=== PATIENT | female | born 1955 | race Caucasian/White ===

== ENCOUNTER 2017-10-18 10:47 | Outpatient (CLI) | payer OTHER ==
--- NOTE | 2017-10-18 14:31 | MRI ---
MRI LUMBAR SPINE WITHOUT CONTRAST: Date: 10/18/17 HISTORY: Low back pain. M51.16. COMPARISON: MRI dated 11/13/16. FINDINGS: The aortic contour is normal. No aneurysmal dilatation. Visualized portions of both kidneys are unremarkable. No retroperitoneal adenopathy. No significant paraspinal musculature or atrophy. The marrow signal in the lumbar spine is normal. The conus medullaris terminates at superior end plate of L1. Levels are as follows: T12-L1: Normal. L1-2: Normal. L2-3: Moderate facet arthrosis. No significant spinal canal narrowing. There is moderate right-sided neural foraminal narrowing due to hypertrophic facet changes. L3-4: There is low grade degenerative disc space height loss with circumferential disc bulge. There is some moderate to severe right and moderate left-sided facet arthropathy. A combination of hypertrophic fa cet changes and low grade circumferential disc bulge causes moderate bilateral neural foraminal narro wing. L4-5: Moderate facet arthrosis. Moderate ligamentum flavum hypertrophy. Low grade circumferential disc bulg e. There is moderate left and right-sided neural foraminal narrowing. L5-S1: There is revisualization of the annular fissure L5-S1 extending to left subarticular zone abutting th e traversing left S1 nerve root. There is also moderate facet arthrosis bilaterally narrowing the nick ateral neural foramina, moderately. IMPRESSION: 1. Similar appearance of the annular fissure at L5-S1 with abutment of the traversing left S1 nerve root. 2. Extensive facet arthropathy throughout the lumbar spine, progressed from prior examination, with low grade circumferential disc bulges. POS: [facility]
== END 2017-10-18 10:48 | disposition home or self-care (01) ==
LOC: SCSMRI 10:47
PROVIDERS: ATTEND Nurse Practitioner Family
DX: M54.16 Radiculopathy, lumbar region (principal); M54.5 Low back pain; M46.96 Unspecified inflammatory spondylopathy, lumbar region
CPT/HCPCS: 72148

== ENCOUNTER 2018-06-08 15:16 | Outpatient (CLI) | payer BC ==
--- NOTE | 2018-06-08 17:19 | RAD ---
3 VIEW LUMBAR SPINE: Date: 06/08/18 INDICATION: Low back pain with pain radiating down left hip. FINDINGS: There is mild multilevel disc degenerative and mild to moderate multilevel facet osteoarthritic quintero e. There is very slight retrolisthesis of L3 on L4 that is accentuated with extension and slightly re duced flexion. No additional abnormal listhesis is present. Vertebral body heights are preserved. IMPRESSION: Mild to moderate spondylosis of the lumbar spine with mild retrolisthesis of L3 on L4 accentuated wit h extension and slightly reduced with flexion. POS: [facility]
== END 2018-06-08 15:17 | disposition home or self-care (01) ==
LOC: SCSRAD 15:16
PROVIDERS: ATTEND Neurological Surgery
DX: M47.26 Other spondylosis with radiculopathy, lumbar region (principal); M43.16 Spondylolisthesis, lumbar region
CPT/HCPCS: 72100

== ENCOUNTER 2018-07-28 10:38 | Outpatient (CLI) | payer BC | END 2018-07-28 10:39 | disposition home or self-care (01) | LOC: BICMAMMO 10:38 | PROVIDERS: ATTEND Obstetrics & Gynecology | DX: Z12.31 Encounter for screening mammogram for malignant neoplasm of breast (principal); Z80.3 Family history of malignant neoplasm of breast | CPT/HCPCS: 77063; 77067 ==

== ENCOUNTER 2019-07-12 09:49 | Outpatient (CLI) | payer BC ==
--- NOTE | 2019-07-12 11:22 | CT ---
EXAM: CT ABDOMEN AND PELVIS HISTORY: Abdominal pain COMPARISON: None. Procedure: Multiple contiguous axial images were obtained and a CT of the abdomen and pelvis with IV contrast. C oronal reformats were performed. FINDINGS: Lower Chest: Patchy groundglass opacities in the visualized lung parenchyma. Correlate for atypical i nfection or infiltrate. Vessels: Normal caliber aorta. No periaortic fat stranding. Calcified plaque in the proximal abdomina l aorta, just before the origin of the celiac artery. Based on images provided, there does not appear to be high grade narrowing at the origin of the celiac artery. Heart: Normal heart size. No significant pericardial fluid Abdomen: Portal vein:Patent Gallbladder: No calcified gallstones. Normal caliber wall. Liver: within normal limits. Pancreas: within normal limits. Spleen: within normal limits. Adrenals: within normal limits. Kidneys: Symmetric enhancement. No obstructive uropathy. Peritoneum: No ascites or free air, no fluid collection. Bowel: Grossly unremarkable gastric mucosa, duodenum and multiple normal caliber small bowel loops. I leocecal junction is unremarkable. Normal caliber appendix. Scattered fecal material in a nondistended, nondilated colon. Mild mucosal thickening involving the distal descending colon and sig moid colon. There is a mild adjacent mesenteric stranding. Low-grade colitis cannot be excluded. No evidence of obstruction. Mesentery and Retroperitoneum: No enlarged mesenteric or retroperitoneal lymph nodes. Abdominal Wall: within normal limits. Pelvis: Reproductive Organs: Uterus and adnexal structures are grossly unremarkable Pelvis: No mass, lymphadenopathy, free air or free fluid. Bladder: within normal limits. Bones: within normal limits. IMPRESSION: 1. Mild mucosal thickening involving the left hemicolon with adjacent fat stranding of the mesentery. Low-grade colitis cannot be entirely excluded. Correlate clinically. 2. Normal caliber appendix.
== END 2019-07-12 09:50 | disposition home or self-care (01) ==
LOC: SCSCT 09:49
PROVIDERS: ATTEND Physician Assistant Medical
DX: R10.11 Right upper quadrant pain (principal); R10.31 Right lower quadrant pain; K63.89 Other specified diseases of intestine
CPT/HCPCS: 74177; 82565

== ENCOUNTER 2024-02-15 14:52 | Outpatient (CLI) | payer BC, OTHER | END 2024-02-15 14:53 | disposition home or self-care (01) | LOC: RAD 14:52 | PROVIDERS: ATTEND Internal Medicine Critical Care Medicine | DX: R06.00 Dyspnea, unspecified (principal) | CPT/HCPCS: 71046 ==